=== PATIENT | female | born 1990 | race Caucasian/White ===

== ENCOUNTER 2019-08-25 03:27 | Emergency (ER) | payer OTHER ==
[~2019-08-25] VITALS: Ht 162.6 cm; Wt 82.0 kg
[2019-08-25 04:22] LABS: URINE BILIRUBIN - DIPSTICK NEGATIVE (NEGATIVE); URINE BLOOD DIPSTICK NEGATIVE (NEGATIVE); URINE COLOR YELLOW; URINE GLUCOSE - DIPSTICK NEGATIVE (NEGATIVE); URINE KETONE NEGATIVE (NEGATIVE); URINE NITRITE - DIPSTICK NEGATIVE (Negative); URINE PROTEIN - DIPSTICK NEGATIVE (NEG-TRACE); URINE UROBILINOGEN - DIPSTICK 0.2 E.U./dL (0.2)
[2019-08-25 04:26] LABS: URINE LEUK ESTERASE LARGE (NEGATIVE)
[2019-08-25 04:28] LABS: URINE BACTERIA FEW hpf; URINE EPITHELIAL CELLS FEW EPI/hpf (0-FEW); URINE MUCUS MANY hpf (NONE-FEW)
[2019-08-25 05:02] VITALS: BP 132/74
== END 2019-08-25 04:59 ==
LOC: ED 03:27
PROVIDERS: Emergency Medicine
DX: O26.893 Other specified pregnancy related conditions, third trimester (principal); R10.30 Lower abdominal pain, unspecified; O99.333 Smoking (tobacco) complicating pregnancy, third trimester; F17.200 Nicotine dependence, unspecified, uncomplicated; Z3A.38 38 weeks gestation of pregnancy

== ENCOUNTER 2022-04-12 21:18 | Emergency (ER) | payer MEDICAID ==
[~2022-04-12] VITALS: Ht 162.6 cm; Wt 87.0 kg
[2022-04-12] MEDS ORDERED: CLINDAMYCIN300 M1 PO (21:55)
[2022-04-12] MEDS ORDERED: VOLTAREN75 MG PO (21:55)
[2022-04-12] MEDS ORDERED: TRAMADOL HCL50 MG PO (21:55)
[2022-04-12 22:15] VITALS: BP 155/89
== END 2022-04-12 22:15 | disposition home or self-care (01) ==
LOC: ED 21:18
DX: K04.7 Periapical abscess without sinus (principal)